=== PATIENT | female | born 1970 | race African-American/Black ===

== ENCOUNTER 2017-10-28 09:09 | Day surgery (SDC) | payer BC, OTHER ==
[2017-10-23 17:30] VITALS: BMI 39.6
[2017-10-28] MEDS ORDERED: MIDAZOLAM HCL 2 MG/2 ML SINGLE DOSE VIAL ONE (11:16)
--- NOTE | 2017-10-28 11:17 | HP ---
Past Medical History - Primary Care Physician PCP:: Tom Aguirre - Admission Chief Complaint: 47yo female with menometrorrhagia and uterine polyps admitted for hysteroscopy, D&C, polypectomy. History of Present Illness: Endometrial polyps, bleeding for long time History Source: Patient, Medical Record Limitations to Obtaining History: No Limitations - Past Medical History TYPING SECTION CHIEF: No: Alzheimer's, CVA, Dementia, Migraine, Multiple Sclerosis, Peripheral Neuropathy, Parkinson's, Seizure, Syncope, TIA, Vertigo, Other Cardiovascular: Yes: HTN Pulmonary: No: Asthma, Bronchitis, Cancer, COPD, O2 Dependent, Pneumonia, Previously Intubated, Pulmonary Embolus, Pulmonary Fibrosis, Sleep Apnea, Other Gastrointestinal: No: Ascites, Cancer, Constipation, Crohn's Disease, Diverticulitis, Diverticulosis, Esophageal Varices, Gastritis, GERD, GI Bleed, Hemorrhoids, Hiatal Hernia, Inflamatory Bowel Disease, Irritable Bowel Disease, Pancreatitis, Peptic Ulcer Disease, Ulcerative Colitis, Other Hepatobiliary: No: Cirrhosis, Cholelithiasis, Cholecystitis, Choledocholithiasis , Hepatitis A, Hepatitis B, Hepatitis C, Other Renal/: No: Renal Failure, Renal Inusuff, BPH, Cancer, Hematuria, Hemodialysis , Neurogenic Bladder, Renal Calculi, UTI, Other Reproductive: Yes: Fibroids Heme/Onc: Yes: Anemia Infectious Disease: No: AIDS, C-Diff, Herpes Zoster, HIV, MRSA, STD's, Tuberculosis, VREF, Other Psych: No: Addictions, Anxiety, Bipolar, Depression, Panic, Psychosis, Schizophrenia, Other Musculoskeletal: No: Bursitis, Chronic low back pain, Hemiparesis, Hemiplegia, Osteoarthritis, Paraplegia, Other Rheumatology: No: Fibromyalgia, Gout, Lupus, Rheumatoid Arthritis, Sarcoidosis, Vasculitis, Other ENT: No: Allergic Rhinitis, Sinusitis, Other Endocrine: Yes: Diabetes Mellitus Dermatology: No: Basal Cell, Cellulitis, Eczema, Melanoma, Psoriasis, Squamous Cell, Other Additional Medical History: Obesity, high cholesterol - Past Surgical History Past Surgical History: Yes: None Hx Myomectomy: Yes Hx Transabdominal Cerclage: No - Smoking History Smoking history: Current every day smoker Have you smoked in the past 12 months: Yes Aproximately how many cigarettes per day: 2 - Alcohol/Substance Use Hx Alcohol Use: No History of Substance Use: reports: None - Social History ADL: Independent History of Recent Travel: No Home Medications - Allergies Allergies/Adverse Reactions: Allergies Allergy/AdvReac Type Severity Reaction Status Date / Time Penicillins Allergy "hives" Verified 10/28/17 10:06 - Home Medications Home Medications: Ambulatory Orders Atorvastatin Ca [Lipitor] 80 mg PO HS 10/23/17 Hydrochlorothiazide [Hctz -] 12.5 mg PO DAILY 10/23/17 Ibuprofen 400 mg PO HS 10/23/17 Ibuprofen 600 mg PO DAILY 10/23/17 Insulin Glargine,Hum.rec.anlog [Lantus] 25 unit SQ HS 10/23/17 Lisinopril [Prinivil -] 40 mg PO DAILY 10/23/17 Metformin HCl [Metformin HCl ER] 500 mg PO BID 10/23/17 Family Disease History - Family Disease History Family History: Unable to Obtain Review of Systems - Review of Systems Constitutional: reports: No Symptoms Eyes: reports: No Symptoms HENT: reports: No Symptoms Neck: reports: No Symptoms Cardiovascular: reports: No Symptoms Respiratory: reports: No Symptoms Gastrointestinal: reports: No Symptoms Genitourinary: reports: Vaginal Bleeding Breasts: reports: No Symptoms Reported Musculoskeletal: reports: No Symptoms Neurological: reports: No Symptoms Endocrine: reports: No Symptoms Hematology/Lymphatic: reports: No Symptoms Psychiatric: reports: No Symptoms Pain Intensity: 0 Physical Exam-LICENSED NURSE PRACTITIONER Vital Signs: Vital Signs Temperature 99.2 F 10/28/17 10:02 Pulse Rate 98 H 10/28/17 10:02 Respiratory Rate 20 10/28/17 10:02 Blood Pressure 138/85 10/28/17 10:02 O2 Sat by Pulse Oximetry (%) 98 10/28/17 10:01 Constitutional: Yes: No Distress, Calm, Obese Eyes: Yes: WNL, Conjunctiva Clear HENT: Yes: WNL, Atraumatic, Normocephalic Neck: Yes: WNL, Supple, Trachea Midline Cardiovascular: Yes: WNL, Regular Rate and Rhythm Respiratory: Yes: WNL, Regular, CTA Bilaterally Gastrointestinal: Yes: WNL, Normal Bowel Sounds, Soft, Abdomen, Obese ...Rectal Exam: Yes: Deferred Renal/: Yes: WNL Pelvis: Yes: WNL External Genitalia: Yes: Normal Internal Exam Deferred: No Vaginal Exam: Yes: Bleeding Cervix: Yes: Normal Uterus: Yes: Normal Musculoskeletal: Yes: WNL Extremities: Yes: WNL Edema: LLE: Trace, RLE: Trace Integumentary: Yes: WNL Neurological: Yes: WNL, Alert, Oriented ...Motor Strength: WNL Psychiatric: Yes: WNL, Alert, Oriented Imaging - Results Ultrasound: Report Reviewed Assessment/Plan 47yo female with menometrorrhagia, fibroids, and uterine polyps admitted for hysteroscopy, D&C, polypectomy. We had discussed the risks, benefits, alternatives of surgery at length including but not limited to infection, bleeding, scarring, perforation, amenorrhea, infertility, hysterectomy, etc. The pt verbalized understanding and requested to proceed with surgery. I emphasized that all surgeries have risks and no guarantees can be provided
[2017-10-28] MEDS ORDERED: SUCCINYLCHOLINE CHLORIDE 200 MG/10 ML VIAL ONE (11:21)
[2017-10-28] MEDS ORDERED: PROPOFOL 20 ML ONE ×3 (11:21)
[2017-10-28] MEDS ORDERED: PROMETHAZINE HCL 25 MG/1 ML VIAL IVPUSH PRN (12:10)
[2017-10-28] MEDS ORDERED: ONDANSETRON 4 MG/2 ML VIAL IVPUSH PRN (12:10)
[2017-10-28] MEDS ORDERED: oxyCODONE HCL 5 MG TABLET PO PRN (12:10)
[2017-10-28] MEDS ORDERED: LACTATED RINGERS SOLUTION 1,000 ML IV SCH (12:15)
--- NOTE | 2017-10-28 12:25 | OP ---
Operative Note - Note: Operative Date: 10/28/17 Pre-Operative Diagnosis: Menometrorrhagia, uterine fibroids and polyps, obesity Operation: Hysersocopy, D&C, polypectomy Findings: Enlarged uterine cavity with polyps and o/w normal endometrium Post-Operative Diagnosis: Same as Pre-op Surgeon: Tom Aguirre Anesthesiologist/PHYSICAL THERAPY SUPERVISOR: Kandi Doss MD Anesthesia: General Specimens Removed: Uterine polyps, endometrial curettings Estimated Blood Loss (mls): 5 Blood Volume Replaced (mls): 0 Fluid Volume Replaced (mls): 400 Operative Report Dictated: Yes
[2017-10-28 12:50] VITALS: TEMP 98.1
[2017-10-28 15:18] VITALS: BP 135/70; PULSE 90
--- NOTE | 2017-10-29 00:32 | OP ---
DATE OF OPERATION: 10/28/2017 PREOPERATIVE DIAGNOSIS: Menometrorrhagia, uterine fibroids and polyps, obesity. POSTOPERATIVE DIAGNOSIS: Menometrorrhagia, uterine fibroids and polyps, obesity. PROCEDURE: Hysteroscopy, dilation and curettage, polypectomy. SURGEON: Tom Aguirre MD ANESTHESIOLOGIST: Kandi Doss MD ANESTHESIA: General. COMPLICATIONS: None. ESTIMATED BLOOD LOSS: 5 mL. URINE OUTPUT: Not tracked. INTRAVENOUS FLUIDS: 400 mL. PATHOLOGY: Uterine polyps, endometrial curettings. FINDINGS: Examination under anesthesia revealed a slightly enlarged uterus with no pelvic or adnexal masses. Pelvic examination was limited by patient's body habitus. Hysteroscopy revealed an enlarged uterine cavity with uterine polyps and otherwise normal endometrial lining. A normal uterine cavity was observed at the end of the procedure. DESCRIPTION OF PROCEDURE: The patient was met preoperatively. Risks, benefits, and alternatives of surgery were discussed in detail. All questions were answered. The patient was brought to the OR with IV running. She was placed on the surgical table in the supine position. The general anesthesia was achieved without difficulty. The patient was then placed in a dorsal lithotomy position using adjustable Bruno stirrups. She was examined under anesthesia with the findings as described above. The patient was then prepped and draped in the usual sterile fashion. A timeout procedure was conducted as per standard protocol. A weighted speculum was then introduced inside the patient's vagina with good visualization of the cervix. The cervix was grasped with a single-toothed tenaculum. The cervical os was dilated to accommodate a size 15 Stroud dilator. A 6-mm hysteroscope was introduced into the uterine cavity with the findings as described above. A S[employer]ion [employer]) resectoscope was then used to resect the uterine polyps. Once all of the uterine polyps were resected, excellent hemostasis was noted. The hysteroscope was then removed from the patient's uterus. A sharp uterine curettage was performed and the tissue was also sent to Pathology. Once this was completed, excellent hemostasis was noted. All of the instruments were removed from the patient. Sponge, lap, and instrument counts were correct. Once again, good hemostasis was confirmed. The patient was transferred to the recovery room awake and in stable condition. Padmini ASHLEY/[id number]
--- NOTE | 2017-10-29 10:53 | PATH ---
Surgical Pathology Report Patient Name: MACEY NGO [facility]. Rec. #: [id number] /Age/Gender: 1970 (Age: 47) / F Account: [id number] Location: [facility] SURGICAL Taken: 10/28/2017 Received: 10/28/2017 Reported: 10/29/2017 Physicians: Tom Aguirre M.D. Specimen(s) Received A: ENDOMETRIUM POLYP B: ENDOMETRIAL CURETTINGS Clinical History Fibroid uterus, menorrhagia, endometrial polyp Final Diagnosis A. ENDOMETRIAL POLYP, DILATION AND CURETTAGE: FRAGMENTS OF ENDOMETRIAL POLYP AND SMOOTH MUSCLE CONSISTENT WITH LEIOMYOMA. B. ENDOMETRIAL CURETTINGS, DILATION AND CURETTAGE: FRAGMENTS OF ENDOMETRIAL POLYP AND SUPERFICIAL MYOMETRIUM. ENDOCERVICAL TISSUE WITH MICROGLANDULAR HYPERPLASIA AND BENIGN ECTOCERVICAL TISSUE. Electronically Signed Kailee Manzo M.D. Gross Description A. Received in formalin labeled "endometrial polyp," is a 2.7 x 1.8 x 0.2 cm aggregate of bryant pink soft tissue fragments. The formalin is filtered and the specimen is entirely submitted in one cassette. B. Received in formalin labeled "endometrial curetting," is a 3.0 x 2.8 x 0.3 cm aggregate of bryant-red soft tissue fragments admixed with mucus. The formalin is filtered and the specimen is entirely submitted in 2 cassettes. 10/28/2017 [facility]/28/2017
== END 2017-10-28 15:00 | disposition home or self-care (01) ==
LOC: JASU-SURG 09:09
PROVIDERS: ATTEND Obstetrics & Gynecology
PROC: 0UJD8ZZ Inspection of Uterus and Cervix, Via Natural or Artificial Opening Endoscopic (ICD-10-PCS; 2017-10-28)
PROC: 0UB97ZX Excision of Uterus, Via Natural or Artificial Opening, Diagnostic (ICD-10-PCS; principal; 2017-10-28 10:30)
PROC: 0UDB7ZX Extraction of Endometrium, Via Natural or Artificial Opening, Diagnostic (ICD-10-PCS; 2017-10-28 10:30)
DX: N92.1 Excessive and frequent menstruation with irregular cycle (principal); D25.9 Leiomyoma of uterus, unspecified; N84.0 Polyp of corpus uteri; E66.9 Obesity, unspecified; E11.9 Type 2 diabetes mellitus without complications; Z79.84 Long term (current) use of oral hypoglycemic drugs; I10 Essential (primary) hypertension; D64.9 Anemia, unspecified
CPT/HCPCS: 36415; 82962; 84702; 86850; 86900; 86901; 88305-TC

== ENCOUNTER 2019-02-06 06:56 | Day surgery (SDC) | payer BC ==
[2019-02-05 15:59] VITALS: BMI 38.8
[2019-02-06] MEDS ORDERED: DEXAMETHASONE SOD PHOSPHATE 4 MG/1 ML VIAL ONE (08:06)
[2019-02-06] MEDS ORDERED: PROPOFOL 20 ML ONE (08:08)
[2019-02-06] MEDS ORDERED: MIDAZOLAM HCL 2 MG/2 ML SINGLE DOSE VIAL ONE (08:09)
[2019-02-06] MEDS ORDERED: oxyCODONE HCL 5 MG TABLET PO PRN (08:57)
[2019-02-06] MEDS ORDERED: ONDANSETRON 4 MG/2 ML VIAL IVPUSH PRN (08:57)
[2019-02-06] MEDS ORDERED: LACTATED RINGERS SOLUTION 1,000 ML IV SCH (09:00)
[2019-02-06] MEDS ORDERED: ACETAMINOPHEN INJECTION 100 ML IVPB ONE (09:01)
--- NOTE | 2019-02-06 09:05 | HP ---
History & Physical Update - History History: No Change (Menorrhagia, diabetes, HTN. Admitted for hysteroscopy, endometrial ablation) - Physical Physical: No Change - Assessment Assessment: No Change - Plan Plan: No Change (Hysteroscopy, endometrial ablation)
[2019-02-06] MEDS ORDERED: ceFAZolin SODIUM 1 GM VIAL IVPB ONE (09:20)
[2019-02-06] MEDS ORDERED: ACETAMINOPHEN 1000 MG/100 ML VIAL (NON FORMULARY) IVPB ONE (09:32)
[2019-02-06 11:54] VITALS: TEMP 98.3
--- NOTE | 2019-02-06 13:25 | OP ---
Operative Note - Note: Operative Date: 02/06/19 Pre-Operative Diagnosis: Menometrorrhagia Operation: Hysteroscopy, endometrial ablation w/[employer] system Findings: Normal uterine cavity Post-Operative Diagnosis: Same as Pre-op Surgeon: Tom Aguirre Anesthesiologist/CARE CONNECTOR: Alfredo Cramer Anesthesia: General Estimated Blood Loss (mls): 10 Blood Volume Replaced (mls): 0 Fluid Volume Replaced (mls): 800 Operative Report Dictated: Yes
[2019-02-06] MEDS ORDERED: oxyCODONE HCL 5 MG TABLET ONE (13:45)
[2019-02-06] MEDS ORDERED: oxyCODONE HCL 5 MG TABLET PO ONE (13:45)
--- NOTE | 2019-02-06 14:06 | OP ---
DATE OF OPERATION: 02/06/2019 PREOPERATIVE DIAGNOSIS: Menometrorrhagia. POSTOPERATIVE DIAGNOSIS: Menometrorrhagia. PROCEDURES: Hysteroscopy. Endometrial biopsy with Cole hydrothermal ablation system. COMPLICATIONS: None. SURGEON: Liang Beach MD ANESTHESIOLOGIST: Elder Cramer MD ANESTHESIA: General. INTRAVENOUS FLUIDS: 800 mL. ESTIMATED BLOOD LOSS: 10 mL. FINDINGS: Examination under anesthesia revealed a small, slightly retroverted uterus, no pelvic or adnexal masses were noted, the uterus is freely mobile within the pelvis. Hysteroscopy revealed a normal uterine cavity. The entire procedure was performed under direct visualization and without complications. PROCEDURE DESCRIPTION: The patient was met preoperatively. Risks, benefits, and alternatives of surgery were discussed in detail. The consent form was reviewed and explained. The patient verbalized understanding. The patient requested to proceed with the surgery. The patient was then brought to the OR with the IV running. She was placed on the surgical table in the supine position. The anesthesia was achieved without difficulty. The patient was then placed in a dorsal lithotomy position using adjustable Bruno stirrups. The patient was examined under anesthesia with the findings as described above. The timeout was conducted as per standard protocol. The patient was then prepped and draped in the usual sterile fashion. A weighted speculum was introduced inside the vagina with good visualization of the cervix. The cervix was grasped and stabilized with a single-tooth tenaculum. The cervical os was then dilated to accommodate a size-25 Stroud dilator. A cole HTA hysteroscope was gently introduced through the cervix and into the uterine cavity. The uterine cavity appeared to be within normal limits. The hydrothermal ablation was then used under direct visualization to ablate the endometrial cavity without complications. Once this was completed, excellent hemostasis was noted, the instruments were removed from the patient. Sponge, laparotomy, needle counts were correct. Once again, hemostasis was assured. The patient was then transferred to a supine position. She was then transferred to a recovery room in stable condition and awake. LIANG BEACH M.D. [id number]
[2019-02-06 14:21] VITALS: BP 132/69; PULSE 94
== END 2019-02-06 14:22 | disposition home or self-care (01) ==
LOC: JASU-SURG 06:56
PROVIDERS: ATTEND Obstetrics & Gynecology
PROC: 0U5B8ZZ Destruction of Endometrium, Via Natural or Artificial Opening Endoscopic (ICD-10-PCS; principal; 2019-02-06 09:00)
DX: N92.1 Excessive and frequent menstruation with irregular cycle (principal)
CPT/HCPCS: 81025; 82962; 86850; 86900; 86901; 94760; J0131

== ENCOUNTER 2020-08-08 04:59 | Day surgery (SDC) | payer BC ==
[2020-08-02 17:10] VITALS: BMI 39.1
[2020-08-08] MEDS ORDERED: MIDAZOLAM HCL 2 MG/2 ML SINGLE DOSE VIAL ONE ×2 (09:13→09:57)
[2020-08-08] MEDS ORDERED: PROPOFOL 20 ML ONE ×2 (09:13→09:57)
[2020-08-08] MEDS ORDERED: DEXAMETHASONE SOD PHOSPHATE 4 MG/1 ML VIAL ONE ×2 (09:20→09:56)
[2020-08-08] MEDS ORDERED: GLYCOPYRROLATE 0.2 MG/1 ML VIAL ONE (09:20)
[2020-08-08] MEDS ORDERED: KETOROLAC TROMETHAMINE 30 MG/1 ML VIAL ONE (09:20)
[2020-08-08] MEDS ORDERED: NEOSTIGMINE METHYLSULFATE 0.5 MG/ML - 10 ML MDV ONE (09:21)
[2020-08-08] MEDS ORDERED: SUCCINYLCHOLINE CHLORIDE 200 MG/10 ML SYRINGE ONE (09:57)
[2020-08-08] MEDS ORDERED: ACETAMINOPHEN INJECTION 100 ML IVPB ONE (10:07)
[2020-08-08] MEDS ORDERED: ceFAZolin SODIUM 1 GM VIAL IVPB ONE (10:16)
[2020-08-08] MEDS ORDERED: SILVER NITRATE 75% APPLIC STCK 1 PKT EACH NR ONE (10:35)
[2020-08-08] MEDS ORDERED: oxyCODONE HCL 5 MG TABLET PO PRN ×2 (12:01)
[2020-08-08] MEDS ORDERED: ONDANSETRON 4 MG/2 ML VIAL IVPUSH PRN (12:01)
[2020-08-08] MEDS ORDERED: LACTATED RINGERS SOLUTION 1,000 ML IV SCH (12:15)
[2020-08-08 13:33] VITALS: BP 141/78; PULSE 87; TEMP 97.3
== END 2020-08-08 13:40 | disposition home or self-care (01) ==
LOC: JASU-SURG 04:59
PROVIDERS: ATTEND Obstetrics & Gynecology
PROC: 0UB98ZZ Excision of Uterus, Via Natural or Artificial Opening Endoscopic (ICD-10-PCS; principal; 2020-08-08 09:30)
PROC: 0UDB8ZX Extraction of Endometrium, Via Natural or Artificial Opening Endoscopic, Diagnostic (ICD-10-PCS; 2020-08-08 09:30)
DX: N92.4 Excessive bleeding in the premenopausal period (principal); D25.9 Leiomyoma of uterus, unspecified; E11.9 Type 2 diabetes mellitus without complications; I10 Essential (primary) hypertension; E66.9 Obesity, unspecified
CPT/HCPCS: 81025; 82962; 88305-TC; 88307-TC; 94760; J0131